=== PATIENT | male | born 1935 | race Caucasian/White ===

== ENCOUNTER → 2016-10-06 | Outpatient (CLI) | payer MEDICARE ==
[~2016-10-06] MED LIST: ASP81TEC PO; ATOR10TA66 PO; ATOR80TA2 PO; BUDE10.2 IH; CLOP75TA PO; GEMF600T3 PO; GLIM2TAB PO; GLIM4TAB PO; LISI10TA PO; LISI10TA2 PO; METF500T4 PO; MTF500T PO; MULT1CAP27 PO; NF-ESOM40C PO; NIAC750T3 PO; PANT40TA PO; PANT40TA3 PO; SLMFT1E INH; VIT1CAPS9 PO
--- NOTE | 2016-10-07 12:26 | Diagnostic Imaging Report ---
EXAMINATION: PET-CT TECHNIQUE: Serum glucose level at the time of the study is: 56 mg/dL. 11 mCi of FDG was administered intravenously followed by obtaining PET images with corresponding noncontrast CT scan images. The CT scan was performed for anatomic correlation and attenuation correction and was not performed according to the diagnostic protocol of the areas covered. The scan was performed from the head to mid thighs. INDICATION: Left lower lobe lung mass. FINDINGS: There is symmetric FDG uptake seen in the brain. There is no suspicious hypermetabolic activity in the neck seen. The left lower lobe pulmonary nodule is seen with normal FDG uptake with associated SUV of about 1.5. It measures the 1.4 cm in size and when correlated with CT of 12/20/2012, it demonstrates questionable minimal increase in size. These findings are in favor of benign etiology such as a hamartoma or noncalcified granuloma. There is background emphysema changes in the lungs. IN THE ABDOMEN AND PELVIS: There is likely physiologic activity seen in bowel loops with nonfocal uptake mostly in the colon. There is also urinary tract excretion, expected with no hypermetabolic mass identified. IMPRESSION: The left lower lobe pulmonary nodule measuring 1.4 cm is not associated with significant FDG uptake in favor of benign etiology. It demonstrates minimal growth compared to 2013 CT scan. It is still favored to be benign such as hamartoma or noncalcified granuloma. Given the minimal growth, a followup study in six months with low dose unenhanced CT scan of the chest is recommended. Dictated by: Dictated on workstation # [id number]
== END ==
LOC: RAD 09:01
PROVIDERS: ATTEND Internal Medicine
DX: R91.1 Solitary pulmonary nodule (principal)

== ENCOUNTER 2016-10-15 06:30 | Outpatient (CLI) | payer MEDICARE | END 2016-10-15 15:35 | DX: Z01.818 Encounter for other preprocedural examination (principal) ==

== ENCOUNTER 2016-10-19 08:44 | Day surgery (SDC) | payer MEDICARE ==
[~2016-10-19] VITALS: Ht 170.2 cm; Wt 68.0 kg
[2016-10-19] MEDS ORDERED: HURRICAINE EXT TUBE (BENZOCAINE) XX PRN (09:00)
[2016-10-19] MEDS ORDERED: NALOXONE 0.4 MG/ML 1 ML (NARCAN) VIAL IVP PRN (09:00)
[2016-10-19] MEDS ORDERED: FLUMAZENIL (ROMAZICON) 0.1 MG/ML 5 ML VIAL INJ PRN (09:00)
[2016-10-19] MEDS ORDERED: NS IV 500 ML 500 ML IV SCH (09:00)
[2016-10-19 09:17] VITALS: BP 142/64
[2016-10-19] MEDS ORDERED: HURRICAINE EXT TUBE (BENZOCAINE) ONE (11:06)
[2016-10-19] MEDS ORDERED: MIDAZOLAM 2 MG/2 ML (VERSED) VIAL ONE ×3 (11:06)
[2016-10-19] MEDS ORDERED: fentaNYL INJECTION 100 MCG/2 ML AMP ONE (11:06)
[2016-10-19] MEDS: MIDAZOLAM 2 MG/2 ML (VERSED) VIAL IVP PRN ×2 (11:20→11:23)
[2016-10-19] MEDS: fentaNYL INJECTION 100 MCG/2 ML AMP IVP PRN ×2 (11:21→11:24)
--- NOTE | 2016-10-19 11:53 | Conscious Sedation/ASA ---
Conscious Sedation Pre-Proced Time Reviewed: 10:47 ASA Class: 2 Airway Mallampati Classification: ([place] appropriate class) I. II. III, IV Lungs Heart ASA score ASA 1: a normal healthy patient ASA 2: a patient with a mild systemic disease (mid diabetes, controlled hypertension, obesity ASA 3: a patient with a severe systemic disease that limits activity (angina , COPD, prior Myocardial infarction) ASA 4: a patient with an incapacitating disease that is a constant threat to life (CHF, renal failure) ASA 5: a moribund patient not expected to survive 24 hrs. (ruptured aneurysm) ASA 6: a declared brain patient whose organs are being harvested. For emergent operations, add the letter E after the classification Grade 2 Sedation Plan: Discussed options with patient/fam Note The patient is an appropriate candidate to undergo the planned procedure, sedation, and anesthesia. The patient immediately re-assessed prior to indication. NAVNEET PEACE MD Oct 19, 2016 11:53 am
--- NOTE | 2016-10-19 11:54 | Endoscopy Procedure Report ---
Endoscopy Report Date: Oct 19, 2016 Preoperative Diagnosis: dysphagia. Weight loss Study Performed: Upper Endoscopy Procedure Instrument: Endoscope Endo Procedure/Findings Findings 1.: Vascular Ectasias, Stricture Copy Copies To 1: MARLENA ANG XAVIER M MD Oct 19, 2016 11:54 am
[2016-10-19 11:55] VITALS: BP 139/70
--- NOTE | 2016-10-19 11:56 | Discharge Inst-Simple/Standard ---
Discharge Inst-Standard Discharge Medications New, Converted or Re-Newed RX: Other Patient Instructions/Follow Up Plan of Care/Instructions/FU: follow-up with me in 10 days to review pathology results Activity as Tolerated: Yes Discharge Diet: No Restrictions NAVNEET PEACE MD Oct 19, 2016 11:56 am
[2016-10-19 12:23] VITALS: BP 124/68
[2016-10-19 12:24] VITALS: BP 124/68
--- NOTE | 2016-10-19 20:36 | OPERATIVE REPORT ---
DATE OF SERVICE: 10/19/2016 PROCEDURE: 1. Upper GI endoscopy. 2. Biopsy of distal esophageal lesion. 3. Cherry cytology of distal esophagus. 4. Balloon dilatation of esophageal stricture. SURGEON: Navneet Peace MD. INDICATION FOR PROCEDURE: This gentleman has a history of esophageal candidiasis and had undergone Tod fundoplication to manage reflux disease. He reported dysphagia and progressive loss of weight. Therefore, an upper endoscopy was felt to be reasonable. Informed consent was obtained after reviewing the procedure in detail. DESCRIPTION OF PROCEDURE: He was placed in left lateral decubitus position and his vital signs were monitored. Conscious sedation was achieved using Versed and fentanyl. The flexible gastroscope was introduced down the esophagus, past the stomach into the proximal duodenum. FINDINGS: Esophagus: 1. Quite tortuous with a smooth stricture at the distal end. 2. Irregular area of the mucosa, about a cm proximal to the stricture. It may be a remnant of previous candidiasis. Cherry cytology and biopsy were obtained. Subsequently the stricture was dilated to 17 mm with the balloon. Stomach: Placed a very small AV malformation was found in the distal stomach. Duodenum: Normal. He tolerated the procedure well and was taken back to the nursing area in a stable condition. IMPRESSION: 1. Weight loss. 2. Dysphagia due to stricture. 3. Distal esophageal lesion, possibly candidiasis. Biopsies and cytology results pending. Job ID: [id number] DocumentID: [id number] Dictated Date: 10/19/2016 11:52:00 [employer] Operator Date: 10/19/2016 20:35:18 Dictated By: NAVNEET PEACE MD MTDD
--- OUTSIDE RECORDS SUMMARY | 2016-10-19 22:54 | XMS REPORT | Continuity of Care Document ---
Author Author [facility] Organization [facility] Address Unknown Phone Unavailable Allergies Active Description Code Type Severity Reaction Onset Reported/Identified Relationship to Patient Clinical Status Yes No Known Drug Allergies [id number] Drug Allergy Unknown N/ A 02/29/2012 Yes Sulfa (Sulfonamide Antibiotics) [id number] Drug Allergy Unknown N/A 10/15/2016 Medications Problems Date Dx Coded Attending Type Code Diagnosis Diagnosed By 04/02/2014 RICKIE SOLO, RONY Mei Ot 787.20 07/03/2015 RACHEL PERSON MD Ot E11.649 TYPE 2 DIABETES MELLITUS WITH HYPOGLYCEM 07/03/2015 RACHEL PERSON MD Ot E78.0 PURE HYPERCHOLESTEROLEMIA 07/03/2015 RACHEL PERSON MD Ot E86.0 DEHYDRATION 07/03/2015 RACHEL PERSON MD Ot E87.1 HYPO-OSMOLALITY AND HYPONATREMIA 07/03/2015 RACHEL PERSON MD Ot G47.30 SLEEP APNEA, UNSPECIFIED 07/03/2015 RACHEL PERSON MD Ot I10 07/03/2015 RACHEL PERSON MD Ot I12.9 HYPERTENSIVE CHRONIC KIDNEY DISEASE W ST 07/03/2015 RACHEL PERSON MD Ot I25.10 ATHSCL HEART DISEASE OF [place] CORONARY 07/03/2015 RACHEL PERSON MD Ot J18.9 07/03/2015 RACHEL PERSON MD Ot J44.9 CHRONIC OBSTRUCTIVE PULMONARY DISEASE, U 07/03/2015 RACHEL PERSON MD Ot K21.9 GASTRO-ESOPHAGEAL REFLUX DISEASE WITHOUT 07/03/2015 RACHEL PERSON MD Ot N17.9 ACUTE KIDNEY FAILURE, UNSPECIFIED 07/03/2015 RACHEL PERSON MD Ot N18.9 CHRONIC KIDNEY DISEASE, UNSPECIFIED 07/03/2015 RACHEL PERSON MD Ot Z87.891 PERSONAL HISTORY OF NICOTINE DEPENDENCE 07/03/2015 RACHEL PERSON MD Ot Z95.5 PRESENCE OF CORONARY ANGIOPLASTY IMPLANT 05/05/2016 TACO SOLO, CRYSTAL [place] Ot C64.2 MALIGNANT NEOPLASM OF LEFT KIDNEY, EXCEP 05/06/2016 TACO SOLO, CRYSTAL [place] Ot 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 Visit Date/Time Discharge Status Pt. Type Provider Facility Loc./Unit Complaint [id number] 10/15/2016 06:30:00 2016 15:35:00 DIS Outpatient NATA SOLO, NAVNEET Robles [facility] PREOP WEIGHT LOSS [id number] 07/01/2015 02:51:00 2015 13:17:00 DIS Inpatient RAZA SOLO, RACHEL Acharya [facility] [address] [id number] 04/02/2014 06:59:00 2013 10:00:00 DIS Outpatient RONY DAMIAN MD [facility] [id number] 03/30/2014 12:24:00 2013 23:59:59 CLS Outpatient RONY DAMIAN MD [facility] PREOP [id number] 11/22/2013 06:24:00 2013 09:32:00 DIS Outpatient [id number] 11/21/2013 15:32:00 2013 23:59:59 CLS Outpatient [id number] 07/20/2013 07:17:00 2013 09:55:00 DIS Outpatient [id number] 07/19/2013 07:24:00 2013 23:59:59 CLS Outpatient [id number] 07/06/2013 07:10:00 2013 23:59:59 CLS Outpatient [id number] 07/05/2013 07:43:00 2013 23:59:59 CLS Outpatient [id number] 03/22/2013 06:33:00 2012 09:25:00 DIS Outpatient [id number] 03/16/2013 07:12:00 2012 23:59:59 CLS Outpatient [id number] 02/23/2013 09:59:00 2012 23:59:59 CLS Outpatient [id number] 12/19/2012 06:57:00 2012 23:59:59 CLS Outpatient [id number] 10/19/2016 11:15:00 PEN Preadmit NATA SOLO, NAVNEET Robles [facility] ENDO WEIGHT LOSS [id number] 10/06/2016 09:01:00 ACT Outpatient MARLENA ANG DO [facility] RAD SEVERE WEIGHT LOSS [id number] 04/06/2016 07:26:00 ACT Outpatient TACO SOLO, CRYSTAL [place] [facility] RAD LT RENAL CELL CARCINOMA
--- OUTSIDE RECORDS SUMMARY | 2016-10-19 22:54 | XMS REPORT | Continuity of Care Document ---
Author [facility] Organization [facility] Address Unknown Phone Unavailable Care Team Providers Care Psych Sales Specialist Name Role Phone Riley Eddy III PCP [phone] Source Comments Some departments are not documenting in the electronic medical record. If you do not see the information that you expected, contact Release of Information in the Health Information Management department at [phone] for further assistance in locating additional records.[facility] Active Allergies and Adverse Reactions Allergen Noted Date Severity Reactions Comments Sulfamethoxazole-Trimetho 12/10/2014 Medium RASH prim Current Medications Prescription Sig. Disp. Refills Start End Date Status Date gemfibrozil (LOPID) 600 Take 600 mg by mouth Active mg tablet twice daily. glimepiride (AMARYL) 4 mg Take 2 mg by mouth twice Active tablet daily. lisinopril (PRINIVIL; Take 10 mg by mouth at Active ZESTRIL) 10 mg tablet bedtime daily. fluticasone-salmeterol Inhale 1 Puff by mouth Active (ADVAIR DISKUS) 100-50 every 12 hours. mcg inhalation disk vitamins, multiple cap Take 1 Cap by mouth Active daily. metFORMIN (GLUCOPHAGE) Take 1,000 mg by mouth Active 500 mg tablet daily with dinner. Takes 500mg with breakfast and 1000mg with dinner. niacin SR (SLO-NIACIN) Take 750 mg by mouth at Active 750 mg Tb24 tablet bedtime daily. Aspirin 81 mg Tab Take 1 Tab by mouth 03/12/20 Active daily. 12 atorvastatin (LIPITOR) 10 Take 1 Tab by mouth 90 Tab 3 04/14/20 Active mg tablet daily. [address] Take 40 mg by mouth Active (PROTONIX) 40 mg tablet daily. Active Problems Problem Noted Date Abnormal cardiovascular stress test 03/11/2012 HTN (hypertension) 03/11/2012 COPD (chronic obstructive pulmonary disease) ([facility]) 03/11/2012 HLD (hyperlipidemia) 03/11/2012 Preoperative cardiovascular examination 03/04/2012 Aortic heart murmur 03/04/2012 Peripheral artery disease ([facility]) 03/04/2012 Overview: Lower extremity thigh claudication History of endovascular stent graft for abdominal aortic aneurysm 03/04/2012 Overview: Stent placed 2007 CAD (coronary artery disease) 03/04/2012 Overview: Technetium myoview 02/29/12 [facility] Inferior and inferolateral reversibility EF 57% 03/11/12: Bare metal stent PCI to CFX and OMB; 60% LAD, negative by FFR, 100% occluded RCA - per cath by Dr. Nichols Cancer of kidney ([facility]) 02/22/2012 Overview: Left renal mass noted during AAA surveillance. Underwent Left Robotic Partial Nephrectomy on 05/10/2012. 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 12/10/14: No evidence of recurrence on ultrasound, labs 12/16/15: No evidence of recurrence on history, exam, labs, CXR, or CT scan L ast Assessment & Plan: Patient doing well. No evidence of cancer recurrence. He is now 3 years out from resection of pT1a cancer. Per AUA and NCCN guidelines, he needs no further surveillance imaging for renal cell carcinoma. He just needs yearly physical and exam which may be done by his PCP. He will follow-up with me prn. Patient is very pleased. 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
== END 2016-10-19 13:05 | disposition home or self-care (01) ==
LOC: ENDO 08:44
PROVIDERS: ATTEND Surgery
DX: K22.2 Esophageal obstruction (principal); R63.4 Abnormal weight loss; K21.0 Gastro-esophageal reflux disease with esophagitis; I25.10 Atherosclerotic heart disease of native coronary artery without angina pectoris; J44.9 Chronic obstructive pulmonary disease, unspecified; I10 Essential (primary) hypertension; E78.5 Hyperlipidemia, unspecified; E11.9 Type 2 diabetes mellitus without complications; M19.90 Unspecified osteoarthritis, unspecified site; G47.33 Obstructive sleep apnea (adult) (pediatric)
CPT/HCPCS: 87101

== ENCOUNTER → 2017-04-14 | Outpatient (CLI) | payer MEDICARE ==
--- NOTE | 2017-04-14 08:42 | Diagnostic Imaging Report ---
EXAMINATION: PA and lateral views of the chest. INDICATION: Shortness of breath. FINDINGS: The lungs are clear of focal infiltrates. There is a 1.4 cm left lower lobe pulmonary nodule better seen on the lateral projection. The heart size is normal. No effusion or pneumothorax. The mediastinum and laura appear unremarkable. IMPRESSION: Unchanged 1.4 cm left lower lobe nodule. Dictated by: Dictated on workstation # [id number]
--- NOTE | 2017-04-14 11:44 | Diagnostic Imaging Report ---
PROCEDURE: US abdomen complete. TECHNIQUE: Multiple real-time grayscale images were obtained over the abdomen in various projections. INDICATION: History of renal cell carcinoma in the left kidney. FINDINGS: The pancreas is obscured. The liver is fairly homogeneous with no focal lesion. The gallbladder has been removed. The CBD is obscured by bowel gas. Hepatopetal flow in the portal vein is seen. The right kidney is 10 cm and the left kidney is 9 cm in length. There is no hydronephrosis or focal mass identified. The spleen is 9.9 cm in length. The aorta and IVC are obscured by bowel gas. No fluid collection is seen in the abdomen. IMPRESSION: No definite abnormality. Dictated by: Dictated on workstation # [id number]
== END ==
LOC: RAD 08:02
PROVIDERS: ATTEND Urology
DX: Z08 Encounter for follow-up examination after completed treatment for malignant neoplasm (principal); R91.1 Solitary pulmonary nodule; Z85.528 Personal history of other malignant neoplasm of kidney
CPT/HCPCS: 71020; 76700

== ENCOUNTER 2019-02-08 14:16 | Outpatient (CLI) | payer MEDICARE ==
[~2019-02-08] VITALS: Ht 170 cm; Wt 75.4 kg
[~2019-02-08 14:16] MED LIST changes: +GEMF600T8 PO; +METF-397 PO; -METF500T4 PO; +OCUVITE SOFTGE1 EACH PO; -VIT1CAPS9 PO
[2019-02-08] MEDS ORDERED: FENO150C4 PO (14:56)
== END 2019-02-08 14:57 | disposition home or self-care (01) ==
LOC: PREOP 14:16
PROVIDERS: ATTEND Surgery
DX: Z01.818 Encounter for other preprocedural examination (principal)